=== PATIENT | male | born 1965 | race Caucasian/White ===

== ENCOUNTER 2017-05-20 06:45 | Day surgery (SDC) | payer OTHER ==
[2017-05-18 10:37] VITALS: BMI 43.5
[2017-05-20 07:08] VITALS: RESP 20; TEMP 98.3
[2017-05-20] MEDS ORDERED: LACTATED RINGERS 1,000 ML IV ONE (07:11)
[2017-05-20 07:23] LABS: Glucose,Whole Blood 96 mg/dL (75-99)
[2017-05-20] MEDS ORDERED: MIDAZOLAM 2 MG/2 ML VIAL ONE (07:28)
[2017-05-20] MEDS ORDERED: fentaNYL (PF) 50 MCG/ML 2 ML AMP ONE (07:28)
[2017-05-20] MEDS ORDERED: PROPOFOL 10 MG/ML 20 ML VIAL IV ONE (07:28)
--- NOTE | 2017-05-20 07:52 | P.PCN ---
Date of Procedure: 05/20/17 Procedure(s) Performed: BRIEF HISTORY: Patient is a 52-year-old pleasant white male, scheduled for an elective colonoscopy as a part of screening for colonic neoplasia. PROCEDURE PERFORMED: Colonoscopy with snare polypectomy. PREOPERATIVE DIAGNOSIS: Screening for colon cancer. IV sedation per Anesthesia. PROCEDURE: After informed consent was obtained, the patient, was brought into the endoscopy unit. IV sedation was administered by Anesthesia under continuous monitoring. Digital rectal examination was normal. Initially the Olympus CF- 160 flexible video colonoscope was then inserted in the rectum, gradually advanced into the cecum without any difficulty. Careful examination was performed as the scope was gradually being withdrawn. Ileocecal valve and the appendiceal orifice were visualized and appeared normal. Prep was excellent. Mucosa of the cecum, appeared normal. In the ascending colon there was a 1 cm polyp removed by snare polypectomy. The rest of the ascending colon, transverse colon, descending colon, appeared normal. In the distal sigmoid colon there was another 1 cm polyp removed by snare polypectomy. Rest of the sigmoid colon, and rectum appeared normal. Retroflexion was performed in the rectum and no lesions were seen. The patient tolerated the procedure well. IMPRESSION: 1cm ascending colon polyp serous was snare polypectomy 1 cm sigmoid colon polyp serous was snare polypectomy RECOMMENDATIONS: Findings of this examination were discussed with the patient as well as his family. He was advised to follow with the biopsy results. If the biopsy shows a tubular adenoma, he can have a repeat colonoscopy in 3 years.
[2017-05-20] MEDS ORDERED: LIDOCAINE 1% 20 ML VIAL (10MG/ML) FOR IV START INTRADERMA PRN (07:55)
[2017-05-20] MEDS ORDERED: LACTATED RINGERS 1,000 ML IV SCH (07:55)
[2017-05-20 08:20] VITALS: BP 120/74; PULSE 66
== END 2017-05-20 08:30 | disposition home or self-care (01) ==
LOC: ORWHC2ENDO 06:45
PROVIDERS: ATTEND Internal Medicine Gastroenterology
DX: Z12.11 Encounter for screening for malignant neoplasm of colon (principal); D12.2 Benign neoplasm of ascending colon; D12.5 Benign neoplasm of sigmoid colon; E11.9 Type 2 diabetes mellitus without complications; F17.210 Nicotine dependence, cigarettes, uncomplicated; Z79.84 Long term (current) use of oral hypoglycemic drugs; E66.01 Morbid (severe) obesity due to excess calories; Z79.899 Other long term (current) drug therapy; Z68.41 Body mass index [BMI] 40.0-44.9, adult
CPT/HCPCS: 88305; 45385; J2250; J3010; J2704

== ENCOUNTER → 2021-05-14 | Outpatient (CLI) | payer OTHER ==
--- NOTE | 2021-05-14 11:05 | XR ---
EXAMINATION TYPE: XR cervical spine comp DATE OF EXAM: 05/14/2021 COMPARISON: NONE HISTORY: Pain TECHNIQUE: Four views are submitted. FINDINGS: The odontoid is intact. There are no compression deformities. The prevertebral soft tissue structur es are within normal limits. Mild degenerative disc disease C5-C6. Minimal anterolisthesis C3 on C4 and C4 and C5 could be physiologic. IMPRESSION: 1. Mild degenerative disc disease C5-C6 consider follow-up MRI.
== END | disposition home or self-care (01) ==
LOC: RADXRYALE 10:35
PROVIDERS: ATTEND Family Medicine
DX: M50.322 Other cervical disc degeneration at C5-C6 level (principal)
CPT/HCPCS: 72050

== ENCOUNTER → 2021-07-25 | Outpatient (CLI) | payer OTHER ==
[2021-07-25 09:15] LABS: African American GFR (CKD) >90 (>60 ml/min/1.73 sqM); Blood Urea Nitrogen 16 mg/dL (9-20); Non-African American GFR(CKD) >90 (>60 ml/min/1.73 sqM)
--- NOTE | 2021-07-25 12:28 | CT ---
EXAMINATION TYPE: CT urogram wo/w con DATE OF EXAM: 07/25/2021 INDICATION: Gross hematuria CT DLP: 6805.30 mGy.cm Automated Exposure Control for Dose Reduction was Utilized. TECHNIQUE AND CONTRAST: CT scan of the abdomen and pelvis is performed without and with IV Contrast, as per CT urogram protoc ol. The patient injected with 100 mL of Isovue 300. 3-D reconstruction images were generated on an in dependent workstation and reviewed. COMPARISON: None available FINDINGS: 3 mm nonobstructing calculus is seen at the lower pole of the left kidney. No other definite radioden se urinary calculi. No hydroureter or hydronephrosis. No definite renal lesion identified. No filling defect is seen within the renal collecting system or the opacified portions of the ureters. No suspi cious ureteric or urinary bladder lesion. Unremarkable prostate and seminal vesicles. Enlarged liver measuring 19.2 cm. No definite hepatic focal lesion identified. Unremarkable gallbladd er, spleen, pancreas and adrenals. Scattered arterial atherosclerotic calcifications. Unremarkable no ndistended stomach, duodenum and small bowel. Uncomplicated colonic diverticulosis without evidence of acute diverticulitis. Normal appendix. No pa thologically enlarged abdominal or pelvic lymph nodes. No sizable ascites. Unremarkable lung bases. D egenerative changes of the lower thoracic and lumbar spine. No aggressive bone lesion. IMPRESSION: 3 mm nonobstructing stone at the lower pole of the left kidney. No other definite radiodense urinary calculi. No hydroureter or hydronephrosis. No definite lesion identified in the kidneys, ureters or t he urinary bladder. Incidental findings as described above.
== END | disposition home or self-care (01) ==
LOC: RADCTMAIN 08:07
PROVIDERS: ATTEND Urology
DX: N20.0 Calculus of kidney (principal)
CPT/HCPCS: 82565; 84520; 74178; 36415; 74400; Q9967